=== PATIENT | female | born 1970 | race Caucasian/White ===

== ENCOUNTER 2024-11-09 21:14 | Emergency (ER) | payer BC ==
[~2024-11-09] VITALS: Ht 162.6 cm; Wt 68.0 kg
[2024-11-09 21:27] VITALS: BP 12/80; TEMP 98; O2SAT 98
[2024-11-09] MEDS ORDERED: CYCL5TAB PO (21:42)
== END 2024-11-09 21:52 | disposition home or self-care (01) ==
LOC: ER 21:23
DX: M54.2 Cervicalgia (principal); J45.909 Unspecified asthma, uncomplicated; V43.52XA Car driver injured in collision with other type car in traffic accident, initial encounter; Y93.89 Activity, other specified; Y92.488 Other paved roadways as the place of occurrence of the external cause; Y99.8 Other external cause status